=== PATIENT | female | born 2000 | race Two or more races ===

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

== ENCOUNTER 2018-01-14 21:40 | Emergency (ER) | payer MEDICAID ==
[2018-01-14] MEDS ORDERED: LEVETIRACETAM 1000 MG/NACL-ISO 1,000 MG/100 ML RTUPB IV ONE (21:58)
--- NOTE | 2018-01-14 22:03 | ER Document Report ---
ED Seizure - General Stated Complaint: POSSIBLE SEIZURE Time Seen by Provider: 01/14/18 21:49 Mode of Arrival: Stretcher Information source: Parent COUNTRY TRAVELED TO/FROM: [facility] Patient complains to provider of: History of seizures Character of seizure: Complete loss/conscious, Generalized shaking Post-ictal symptoms: Confusion Injuries: None Notes: 17 y/o female with h/o seizure disorder brought to Ed by EMS for seizure lasting greater then 30 minutes, patient received 8mg Versed prior to arrival in ED, family member at bedside reports no recent illness or injury, no fever, no nausea and vomiting, denies non-compliance with medications, patient sedated and convulsing at time of initial examination - Related Data Allergies/Adverse Reactions: No Known Allergies Allergy (Unverified 10/26/17 23:45) Past Medical History - General Information source: Relative - Social History Smoking Status: Unknown if Ever Smoked Family History: Other - Not obtainable due to the patient's mental status Neurological Medical History: Reports: Hx Seizures Renal/ Medical History: Denies: Hx Peritoneal Dialysis Review of Systems - Review of Systems Constitutional: No symptoms reported EENT: No symptoms reported Cardiovascular: No symptoms reported Respiratory: No symptoms reported Gastrointestinal: No symptoms reported Genitourinary: No symptoms reported Female Genitourinary: No symptoms reported Musculoskeletal: No symptoms reported Skin: No symptoms reported Hematologic/Lymphatic: No symptoms reported Neurological/Psychological: Seizure -: Yes All other systems reviewed and negative Physical Exam - Vital signs Vitals: Temp Resp Pulse Ox 98 F 17 100 01/14/18 21:48 01/14/18 21:48 01/14/18 21:48 Interpretation: Normal - General General appearance: Other - convulsing - HEENT Head: Normocephalic, Atraumatic Eyes: Normal Conjunctiva: Normal Eyelashes: Normal Pupils: PERRL Pharynx: Normal Neck: Normal - Respiratory Respiratory status: No respiratory distress Chest status: Nontender Breath sounds: Normal Chest palpation: Normal - Cardiovascular Rhythm: Regular Heart sounds: Normal auscultation Murmur: No - Abdominal Inspection: Normal Distension: No distension Bowel sounds: Normal Tenderness: Nontender Organomegaly: No organomegaly - Back Back: Normal, Nontender - Extremities General upper extremity: Normal inspection, Nontender, Normal color, Normal ROM , Normal temperature General lower extremity: Normal inspection, Nontender, Normal color, Normal ROM , Normal temperature, Normal weight bearing. No: Keyla's sign - Neurological Motor strength normal: LUE, RUE, LLE, RLE - Skin Skin Temperature: Warm Skin Moisture: Dry Skin Color: Normal Course - Re-evaluation Re-evalutation: 01/14/18 22:50 patient exhibiting convulsive -like movements on evaluation, however, when I lift her arm over her head and let it drop it diverts from her face each time, I am still trying to determine what medication she currently taking, EEG performed in October at this facility shows no signs of seizure activity, concern for likely psuedoseizures 01/14/18 23:01 cousin reports patient on Zoloft at home, not any seizure medication, further confirms my suspicion of pseudoseizures, patient sedated from Versed she received in Ambulance ride here, will attempt to ambulate and discharge home with follow-up instructions - Vital Signs Vital signs: Temp Pulse Resp BP Pulse Ox 98 F 15 137/77 H 100 01/14/18 21:48 01/14/18 22:03 01/14/18 22:03 01/14/18 22:03 - Laboratory Result Diagrams: 01/14/18 22:00 01/14/18 22:00 Laboratory results interpreted by me: 01/14/18 01/14/18 22:00 22:00 Hgb 11.9 L RDW 15.3 H Potassium 3.5 L Glucose 120 H Total Bilirubin 0.1 L AST 39 H - EKG Interpretation by Md EKG shows normal: Sinus rhythm Rate: Tachycardia Discharge - Discharge Clinical Impression: Pseudoseizures Condition: Stable Disposition: HOME, SELF-CARE Instructions: Anxiety ([facility]), Depression ([facility]) Additional Instructions: Follow up with your primary care provider in 2-3 days. Return to the ER immediately if symptoms worsen or any additional concerns. Referrals: JEROME ALEMAN MD [Primary Care Provider] - Follow up as needed
[2018-01-14 22:21] LABS: ABSOLUTE EOSINOPHILS # (AUTO) 0.2 10^3/uL (0.0-0.6); ABSOLUTE LYMPHOCYTES (AUTO) 1.8 10^3/uL (0.5-4.7); ABSOLUTE MONOCYTES (AUTO) 0.6 10^3/uL (0.1-1.4); ABSOLUTE NEUT (AUTO) 4.9 10^3/uL (1.7-8.2); BASOPHILS % (AUTO) 0.3 % (0-2); EOSINOPHILS % (AUTO) 2.2 % (0-6); HEMATOCRIT 36.4 % (36.0-47.0); HEMOGLOBIN 11.9 g/dL (12.0-15.5); LYMPHOCYTES % (AUTO) 24.1 % (13-45); MEAN CORPUSCULAR HEMOGLOBIN 27.1 pg (27.0-33.4); MEAN CORPUSCULAR HGB CONC 32.7 g/dL (32.0-36.0); MEAN CORPUSCULAR VOLUME 83 fl (80-97); MONOCYTES % (AUTO) 8.1 % (3-13); PLATELET COUNT 240 10^3/uL (150-450); RED CELL DISTRIBUTION WIDTH 15.3 % (11.5-14.0); SEGMENTED NEUTROPHILS % (AUTO) 65.3 % (42-78); TOTAL CELLS COUNTED % (AUTO) 100 %; WHITE BLOOD COUNT 7.4 10^3/uL (4.0-10.5)
[2018-01-14 22:31] LABS: ALANINE AMINOTRANSFERASE 18 U/L (5-35); ALBUMIN 4.3 g/dL (3.7-5.6); ALKALINE PHOSPHATASE 103 U/L (50-135); ANION GAP 13 (5-19); ASPARTATE AMINO TRANSFERASE 39 U/L (5-30); BILIRUBIN,DIRECT 0.1 mg/dL (0.0-0.4); BILIRUBIN,TOTAL 0.1 mg/dL (0.2-1.3); BLOOD UREA NITROGEN 13 mg/dL (7-20); CALCIUM 9.4 mg/dL (8.4-10.2); CARBON DIOXIDE 25 mmol/L (22-30); CHLORIDE 105 mmol/L (98-107); GLUCOSE 120 mg/dL (75-110); POTASSIUM 3.5 mmol/L (3.6-5.0); SODIUM 142.7 mmol/L (137-145); TOTAL PROTEIN 7.1 g/dL (6.3-8.2)
[2018-01-14 22:33] LABS: ALCOHOL < 10 mg/dL (NONE DETECTED)
[2018-01-15 00:51] VITALS: BP 101/60
--- NOTE | 2018-01-15 06:07 | EKG REPORT ---
SEVERITY:- BORDERLINE ECG - SINUS TACHYCARDIA PROBABLE LEFT ATRIAL ABNORMALITY : Confirmed by: Too Torre MD 15-Jan-2018 06:07:13
== END 2018-01-15 02:58 | disposition home or self-care (01) ==
LOC: ER 21:40
DX: F44.5 Conversion disorder with seizures or convulsions (principal); Z79.899 Other long term (current) drug therapy
CPT/HCPCS: 36415; 80053; 80307; 83735; 84703; 85025; 93005; 93010; 96374; 99284; J1953

== ENCOUNTER 2018-01-15 14:19 | Emergency (ER) | payer MEDICAID ==
--- NOTE | 2018-01-15 14:57 | ER Document Report ---
ED General - General Chief Complaint: Probable Seizure Stated Complaint: POSSIBLE SEIZURE Time Seen by Provider: 01/15/18 14:26 Cannot obtain history due to: Uncooperative Notes: The patient is a 17-year-old female, past medical history depression, pseudoseizures, presents with shaking of her arms by EMS. Cousin is at bedside and said that she is frequently having these shaking episodes. Patient was seen in the ER yesterday for similar symptoms and diagnosed with pseudoseizures. She had a prior EEG, which was negative for any seizure activity. On arrival to the ER, the patient will begin shaking as I get closer and will stop after I tell her to stop. Pleasant said she had some chest pain yesterday. Patient laying with her eyes closed and will not answer questions. JAILENE used to help with translation from ruby. TRAVEL OUTSIDE OF THE [place] IN LAST 30 DAYS: No COUNTRY TRAVELED TO/FROM: [facility] - Related Data Allergies/Adverse Reactions: No Known Allergies Allergy (Unverified 10/26/17 23:45) Past Medical History - General Information source: Relative - [place], Emergency Med Personnel Cannot obtain history due to: Uncooperative - Social History Smoking Status: Unknown if Ever Smoked Family History: Other - Not obtainable due to the patient's mental status Neurological Medical History: Reports: Hx Seizures Renal/ Medical History: Denies: Hx Peritoneal Dialysis Review of Systems - Review of Systems -: Yes ROS unobtainable due to patient's medical condition Physical Exam - Vital signs Vitals: Pulse Ox 100 01/15/18 14:34 - Notes Notes: PHYSICAL EXAMINATION: GENERAL: No acute distress. HEAD: Atraumatic, normocephalic. EYES: Pupils equal round and reactive to light, extraocular movements intact, sclera anicteric, conjunctiva are normal. ENT: nares patent, oropharynx clear without exudates. Moist mucous membranes. NECK: Normal range of motion, supple without lymphadenopathy LUNGS: Breath sounds clear to auscultation bilaterally and equal. No wheezes rales or rhonchi. HEART: Regular rate and rhythm without murmurs ABDOMEN: Soft, nontender, normoactive bowel sounds. No guarding, no rebound. No masses appreciated. EXTREMITIES: Normal range of motion, no pitting or edema. No cyanosis. NEUROLOGICAL: Arm shaking that worsens when I examine her and will stop when I walk out of the room. Eyes tightly shut. SKIN: Warm, Dry, normal turgor, no rashes or lesions noted. Course - Re-evaluation Re-evalutation: With patient's negative EEG and abnormal movements that are not consistent with a generalized tonic-clonic seizure, suspect patient is having PNES again. Accu- Chek is normal and EKG does not show any ischemic changes. When patient was told she was discharged, she woke up and ambulate out the door. Provide her with follow-up at [facility] for further evaluation and treatment. - Vital Signs Vital signs: Temp Pulse Resp BP Pulse Ox 98.7 F 86 18 104/60 100 01/15/18 16:55 01/15/18 16:55 01/15/18 16:55 01/15/18 16:55 01/15/18 16:55 Discharge - Discharge Clinical Impression: Pseudoseizures Condition: Stable Disposition: HOME, SELF-CARE Additional Instructions: You are not having seizures. Follow-up with a primary care physician, psychologist and neurologist for further evaluation and treatment. Referrals: [facility] [Outside] - Follow up as needed
[2018-01-15 17:12] VITALS: BP 104/60
--- NOTE | 2018-01-15 21:07 | EKG REPORT ---
SEVERITY:- BORDERLINE ECG - SINUS RHYTHM PROBABLE LEFT ATRIAL ABNORMALITY : Confirmed by: Estrada Tirado 15-Jan-2018 21:07:14
== END 2018-01-15 17:05 | disposition home or self-care (01) ==
LOC: ER 14:19
DX: R25.9 Unspecified abnormal involuntary movements (principal)
CPT/HCPCS: 93005; 93010; 99284

== ENCOUNTER 2018-09-06 13:36 | Emergency (ER) | payer SELFPAY ==
[2018-09-06 13:41] VITALS: BP 126/68
--- NOTE | 2018-09-06 14:48 | ER Document Report ---
ED Respiratory Problem - General Chief Complaint: Shortness Of Breath Stated Complaint: SHORTNESS OF BREATH Time Seen by Provider: 09/06/18 14:29 Mode of Arrival: Ambulatory Information source: Patient Notes: Chief complaint: Shortness of breath History of complain:( obtained from----patient) 20 years old female who is 22 weeks with , presents today shortness of breath on and off with a history of asthma. Has not been taking any inhalers. No fever chills productive cough. No abdominal pain. Denies any dysuria or frequency. Denies any vaginal discharges. History obtained through freelance interpreter/translator online Onset: As above Duration: Last few days Severity: Mild Quality: Wheezing Context: Unknown unknown Exacerbating factor and relieving factors: REVIEW OF SYSTEMS: CONSTITUTIONAL : Denies fever, chills, or sweats. Denies recent illness. EENT: Denies eye, ear, throat, or mouth pain or symptoms. Denies nasal or sinus congestion or discharge. Denies throat, tongue, or mouth swelling or difficulty swallowing. CARDIOVASCULAR: Denies chest pain. Denies palpitations or racing or irregular heart beat. Denies ankle edema. RESPIRATORY: Denies cough, cold, or chest congestion. Denies shortness of breath, difficulty breathing, or wheezing. GASTROINTESTINAL: Denies distention. Denies nausea, vomiting, or diarrhea. Denies blood in vomitus, stools, or per rectum. Denies black, tarry stools. Denies constipation. GENITOURINARY: Denies difficulty urinating, painful urination, burning, frequency, blood in urine, or discharge. FEMALE GENITOURINARY: Denies vaginal bleeding, heavy or abnormal periods, irregular periods. Denies vaginal discharge or odor. MUSCULOSKELETAL: Denies back or neck pain or stiffness. Denies joint pain or swelling. SKIN: Denies rash, lesions or sores. HEMATOLOGIC : Denies easy bruising or bleeding. LYMPHATIC: Denies swollen, enlarged glands. NEUROLOGICAL: Denies confusion or altered mental status. Denies passing out or loss of consciousness. Denies dizziness or lightheadedness. Denies headache. Denies weakness or paralysis or loss of use of either side. Denies problems with gait or speech. Denies sensory loss, numbness, or tingling. Denies seizures. PSYCHIATRIC: Denies anxiety or stress. Denies depression, suicidal ideation, or homicidal ideation. ALL OTHER SYSTEMS REVIEWED AND NEGATIVE. PHYSICAL EXAMINATION: GENERAL: Well-appearing, well-nourished and in no acute distress. HEAD: Atraumatic, normocephalic. EYES: Pupils equal round and reactive to light, extraocular movements intact, conjunctiva are normal. ENT: Nares patent, oropharynx clear without exudates. Moist mucous membranes. NECK: Normal range of motion, supple without lymphadenopathy LUNGS: Breath sounds clear to auscultation bilaterally and equal. No wheezes rales or rhonchi. HEART: Regular rate and rhythm without murmurs ABDOMEN: Soft, nontender, nondistended abdomen. No guarding, no rebound. No masses appreciated. Examination of genitals-deferred Musculoskeletal: Normal range of motion, no pitting or edema. No cyanosis. NEUROLOGICAL: Cranial nerves grossly intact. Normal speech, normal gait. Normal sensory, motor exams PSYCH: Normal mood, normal affect. SKIN: Warm, Dry, normal turgor, no rashes or lesions noted. Dictation was performed using [employer] voice recognition software TRAVEL OUTSIDE OF THE [place] IN LAST 30 DAYS: No COUNTRY TRAVELED TO/FROM: [facility] - [facility] Notes: Dictated - Related Data Allergies/Adverse Reactions: No Known Allergies Allergy (Verified 09/06/18 13:38) Past Medical History - Social History Smoking Status: Never Smoker Chew tobacco use (# tins/day): No Smoking Education Provided: No Frequency of alcohol use: Rare Lives with: Family Family History: Reviewed & Not Pertinent, Other - Not obtainable due to the patient's mental status Neurological Medical History: Reports: Hx Seizures Renal/ Medical History: Denies: Hx Peritoneal Dialysis Review of Systems - Review of Systems Notes: Dictated Physical Exam - Vital signs Vitals: Temp Pulse Resp BP Pulse Ox 98.5 F 82 12 126/68 H 100 09/06/18 13:39 09/06/18 13:39 09/06/18 13:39 09/06/18 13:39 09/06/18 13:39 - Notes Notes: Dictated Course - Vital Signs Vital signs: Temp Pulse Resp BP Pulse Ox 98.5 F 82 12 126/68 H 100 09/06/18 13:39 09/06/18 13:39 09/06/18 13:39 09/06/18 13:39 09/06/18 13:39 Discharge - Discharge Clinical Impression: Asthma Qualifiers: Asthma severity: mild Asthma persistence: intermittent Asthma complication type : unspecified Qualified Code(s): J45.20 - Mild intermittent asthma, uncomplicated Qualifiers: Weeks of gestation: 22 weeks Qualified Code(s): Z3A.22 - 22 weeks gestation of Condition: Fair Disposition: HOME, SELF-CARE Instructions: Asthma ([facility]) Prescriptions: Albuterol Sulfate [Proair HFA Inhalation Aerosol 8.5 gm MDI] 2 puff IH Q4H PRN # 1 mdi PRN Reason: Referrals: ZAIRA BEEBE, WELFARE CASE WORKER [Primary Care Provider] - Follow up as needed
== END 2018-09-06 14:52 | disposition home or self-care (01) ==
LOC: ER 13:36
DX: O26.92 Pregnancy related conditions, unspecified, second trimester (principal); J45.20 Mild intermittent asthma, uncomplicated; Z3A.22 22 weeks gestation of pregnancy
CPT/HCPCS: 99284

== ENCOUNTER → 2018-09-11 | Outpatient (CLI) | payer SELFPAY ==
--- NOTE | 2018-09-11 15:13 | RADIOLOGY REPORT (SQ) ---
EXAM DESCRIPTION: U/S OB 14+ TRNABD 1GES W/O DOP COMPLETED DATE/TIME: 09/11/2018 1:59 pm REASON FOR STUDY: Z34.82 ENCOUNTER FOR SUPERVISION OF OTHER NORMAL ,SECOND TRIMESTER Z34.82 ENCOUNTER FOR SUPRVSN OF NORMAL , SECOND TRI COMPARISON: None. TECHNIQUE: Static and Dynamic grayscale imaging performed of gravid uterus using transabdominal appr oach. Additional selected color Doppler and spectral images recorded. All stored on PACS. LIMITATIONS: None. FINDINGS: FETUSES SEEN:1 EGA: 24 weeks 5 days. Calculated using BPD,FL,HC,AC documented on images. No discrepancy with clinic al dates. BRANDIN: 12/27/2018. EFW: 728 grams +/-108 grams PERCENTILE: Not obtained. MAR: 3.5 cm PLACENTA: Anterior: Marginal previa. PRESENTATION: Transverse ANATOMY: HEART RATE: 133 beats per minute. FOUR CHAMBER HEART: Visualized. THREE VESSEL CORD: Yes. CORD INSERTION: Visualized. KIDNEYS AND BLADDER: Visualized. Appear normal. STOMACH: Visualized. Appears normal. SPINE: Normal as visualized. BRAIN AND LATERAL VENTRICLES: Visualized. Appear normal. OTHER: No other significant finding. MATERNAL ADNEXA: Maternal ovaries not visualized. CERVICAL LENGTH: 4.9 cm. Closed. OTHER: No other significant finding. IMPRESSION: LIVING INTRAUTERINE . ESTIMATED GESTATIONAL AGE 24 weeks 5 days NO VISUALIZED ANOMALIES. Trimester of : Second trimester - 13 weeks 1 day to 27 weeks 6 days. TECHNICAL DOCUMENTATION: JOB ID: [id number] [employer]- All Rights Reserved Reading location - IP/workstation name: [email or web address]
== END ==
LOC: RAD 13:57
PROVIDERS: ATTEND Nurse Practitioner
DX: Z34.82 Encounter for supervision of other normal pregnancy, second trimester (principal)
CPT/HCPCS: 76805

== ENCOUNTER → 2018-11-05 | Outpatient (CLI) | payer SELFPAY ==
[2018-11-05 16:05] LABS: URINE PROTEIN 14.1 mg/dL (<12)
[2018-11-05 16:06] LABS: 24 HOUR URINE PROTEIN RESULT 155 mg/day (42-225)
[2018-11-05 16:06] LABS: ALANINE AMINOTRANSFERASE 16 U/L (9-52); ALBUMIN 3.8 g/dL (3.5-5.0); ALKALINE PHOSPHATASE 139 U/L (38-126); ANION GAP 10 (5-19); ASPARTATE AMINO TRANSFERASE 25 U/L (14-36); BILIRUBIN,DIRECT 0.1 mg/dL (0.0-0.4); BILIRUBIN,TOTAL 0.4 mg/dL (0.2-1.3); BLOOD UREA NITROGEN 6 mg/dL (7-20); CARBON DIOXIDE 22 mmol/L (22-30); CHLORIDE 106 mmol/L (98-107); GLUCOSE 94 mg/dL (75-110); POTASSIUM 4.3 mmol/L (3.6-5.0); SODIUM 137.6 mmol/L (137-145); URIC ACID 2.9 mg/dL (2.5-6.2)
== END ==
LOC: LAB 15:37
PROVIDERS: ATTEND Nurse Practitioner
DX: O16.9 Unspecified maternal hypertension, unspecified trimester (principal)
CPT/HCPCS: 36415; 80053; 83615; 84156; 84550

== ENCOUNTER 2018-12-19 16:56 | Inpatient (IN) | payer SELFPAY ==
[2018-12-19 17:39] LABS: HEMATOCRIT 32.4 % (36.0-47.0); HEMOGLOBIN 10.7 g/dL (12.0-15.5); MEAN CORPUSCULAR HEMOGLOBIN 24.8 pg (27.0-33.4); MEAN CORPUSCULAR HGB CONC 32.9 g/dL (32.0-36.0); MEAN CORPUSCULAR VOLUME 75 fl (80-97); PLATELET COUNT 121 10^3/uL (150-450); RED BLOOD COUNT 4.31 10^6/uL (3.72-5.28); RED CELL DISTRIBUTION WIDTH 16.9 % (11.5-14.0); WHITE BLOOD COUNT 9.7 10^3/uL (4.0-10.5)
[2018-12-19 17:45] LABS: APPEARANCE,URINE CLOUDY; BILIRUBIN,URINE NEGATIVE (NEGATIVE); GLUCOSE, URINE NEGATIVE (NEGATIVE); KETONES,URINE NEGATIVE (NEGATIVE); LEUKOCYTE ESTERASE,URINE SMALL (NEGATIVE); NITRITE,URINE NEGATIVE (NEGATIVE); PROTEIN,URINE 100 mg/dL (NEGATIVE); URINE SPECIFIC GRAVITY 1.012; UROBILINOGEN,URINE NEGATIVE mg/dL (<2.0)
[2018-12-19 17:46] LABS: COLOR,URINE YELLOW
[2018-12-19 18:01] LABS: URINE AMPHETAMINES SCREEN NEGATIVE; URINE BARBITURATES SCREEN NEGATIVE; URINE BENZODIAZEPINES SCREEN NEGATIVE; URINE COCAINE SCREEN NEGATIVE; URINE MARIJUANA (THC) SCREEN NEGATIVE; URINE METHADONE SCREEN NEGATIVE; URINE PHENCYCLIDINE SCREEN NEGATIVE
[2018-12-19 18:06] LABS: ALANINE AMINOTRANSFERASE 14 U/L (9-52); ALBUMIN 3.6 g/dL (3.5-5.0); ALKALINE PHOSPHATASE 216 U/L (38-126); ANION GAP 10 (5-19); ASPARTATE AMINO TRANSFERASE 29 U/L (14-36); BILIRUBIN,DIRECT 0.2 mg/dL (0.0-0.4); BILIRUBIN,TOTAL 0.4 mg/dL (0.2-1.3); BLOOD UREA NITROGEN 7 mg/dL (7-20); CALCIUM 9.5 mg/dL (8.4-10.2); CARBON DIOXIDE 19 mmol/L (22-30); CHLORIDE 106 mmol/L (98-107); GLUCOSE 77 mg/dL (75-110); POTASSIUM 4.2 mmol/L (3.6-5.0); SODIUM 135.3 mmol/L (137-145); TOTAL PROTEIN 7.2 g/dL (6.3-8.2); URIC ACID 5.3 mg/dL (2.5-6.2)
[2018-12-19 18:14] LABS: URINE CREATININE 97.9 mg/dL (16-327)
[2018-12-19 18:36] LABS: UR PRO/CREAT RATIO RESULT 4.9 mg/mg (0.0-0.2); URINE PROTEIN 478.9 mg/dL (<12)
[2018-12-19] MEDS ORDERED: MAGNESIUM SULFATE 4 GM/100 ML RTUPB IV ONE ×2 (18:58→19:35)
[2018-12-19] MEDS ORDERED: RINGERS SOLUTION,LACTATED 1,000 ML IV ONE (19:04)
[2018-12-19] MEDS ORDERED: MISOPROSTOL 0.2 MG TABLET ONE (19:35)
[2018-12-19] MEDS ORDERED: LIDOCAINE 1% INJ-PF (10 MG/ML) 30 ML SDV ONE (19:35)
[2018-12-19] MEDS ORDERED: OXYTOCIN/NORMAL SALINE 20 UNIT/1,000 ML RTUINJ ONE (19:35)
[2018-12-19] MEDS ORDERED: MAGNESIUM SULFATE 20 GM/500 ML RTUINJ IV ONE (19:35)
[2018-12-19 19:54] LABS: ABSOLUTE LYMPHOCYTES (AUTO) 1.6 10^3/uL (0.5-4.7); ABSOLUTE MONOCYTES (AUTO) 0.6 10^3/uL (0.1-1.4); ABSOLUTE NEUT (AUTO) 6.8 10^3/uL (1.7-8.2); BASOPHILS % (AUTO) 0.3 % (0-2); EOSINOPHILS % (AUTO) 0.4 % (0-6); HEMATOCRIT 31.1 % (36.0-47.0); HEMOGLOBIN 10.1 g/dL (12.0-15.5); LYMPHOCYTES % (AUTO) 17.8 % (13-45); MEAN CORPUSCULAR HEMOGLOBIN 24.6 pg (27.0-33.4); MEAN CORPUSCULAR HGB CONC 32.6 g/dL (32.0-36.0); MEAN CORPUSCULAR VOLUME 76 fl (80-97); MONOCYTES % (AUTO) 6.8 % (3-13); PLATELET COUNT 120 10^3/uL (150-450); RED BLOOD COUNT 4.11 10^6/uL (3.72-5.28); RED CELL DISTRIBUTION WIDTH 16.9 % (11.5-14.0); SEGMENTED NEUTROPHILS % (AUTO) 74.7 % (42-78); TOTAL CELLS COUNTED % (AUTO) 100 %
[2018-12-19] MEDS ORDERED: OXYTOCIN/NORMAL SALINE 20 UNIT/1,000 ML RTUINJ IV PRN (20:11)
[2018-12-19] MEDS: MAGNESIUM SULFATE 20 GM/500 ML RTUINJ IV PRN (20:17)
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
[2018-12-20] MEDS ORDERED: NALBUPHINE HCL INJ 10 MG/1 ML AMPULE INJ ONE (00:43)
[2018-12-20] MEDS ORDERED: PROMETHAZINE HCL INJ 25 MG/1 ML VIAL IV ONE (00:43)
[2018-12-20] MEDS ORDERED: NALBUPHINE HCL INJ 10 MG/1 ML AMPULE ONE (00:45)
[2018-12-20] MEDS ORDERED: PROMETHAZINE HCL INJ 25 MG/1 ML VIAL ONE (00:45)
[2018-12-20] MEDS ORDERED: MEASLES,MUMPS&RUBELLA VACC/PF 0.5 ML VIAL SUBCUT PRN (02:30)
[2018-12-20] MEDS ORDERED: OXYTOCIN/NORMAL SALINE 20 UNIT/1,000 ML RTUINJ IV PRN (02:30)
[2018-12-20] MEDS ORDERED: NA PHOS,M-B/NA PHOS,DI-BA (ADULT) 133 ML ENEMA PR PRN (02:30)
[2018-12-20] MEDS ORDERED: DIBUCAINE 1% OINTMENT 56 GM TP PRN (02:30)
[2018-12-20] MEDS ORDERED: DIPHENHYDRAMINE HCL 25 MG CAPSULE PO PRN (02:30)
[2018-12-20] MEDS ORDERED: PROMETHAZINE HCL 25 MG SUPP.RECT PR PRN (02:30)
[2018-12-20] MEDS ORDERED: PROMETHAZINE HCL 25 MG TABLET PO PRN (02:30)
[2018-12-20] MEDS ORDERED: DIPH/PERTUSS(ACELL)/TETANUS VAC/PF 0.5 ML SYR (>=10YO) IM PRN (02:30)
[2018-12-20] MEDS ORDERED: ACETAMINOPHEN WITH CODEINE #3 TABLET PO PRN ×2 (02:30)
[2018-12-20] MEDS ORDERED: ACETAMINOPHEN 650 MG SUPP.RECT PR PRN (02:30)
[2018-12-20] MEDS ORDERED: GLYCERIN/WITCH HAZEL LEAF 1 EACH MED..PAD TP PRN (02:30)
[2018-12-20] MEDS ORDERED: PROMETHAZINE HCL INJ 25 MG/1 ML VIAL IV PRN (02:30)
[2018-12-20] MEDS ORDERED: MAGNESIUM HYDROXIDE SUSP 30 ML UDCUP PO PRN (02:30)
[2018-12-20] MEDS ORDERED: PSEUDOEPHEDRINE HCL 30 MG TABLET PO PRN (02:30)
[2018-12-20] MEDS ORDERED: BENZOCAINE/MENTHOL AEROSOL SPRAY 56 ML TOP PRN (02:30)
[2018-12-20] MEDS ORDERED: ZOLPIDEM TARTRATE 5 MG TABLET PO PRN (02:30)
[2018-12-20] MEDS ORDERED: ONDANSETRON HCL INJ/PF 4 MG/2 ML SDV ONE (03:57)
[2018-12-20] MEDS ORDERED: ONDANSETRON HCL INJ/PF 4 MG/2 ML SDV IV ONE (03:57)
[2018-12-20] MEDS: RINGERS SOLUTION,LACTATED 1,000 ML IV PRN ×2 (04:02→16:18)
--- NOTE | 2018-12-20 04:21 | Delivery Summary ---
Del Sum A-C Datetime Report Generated by CPN: 12/20/2018 04:21 DELIVERY PERSONNEL DELIVERY PERSONNEL: [id number] Delivery Doctor:: Lacey Rucker MD Labor and Delivery Nurse:: Danyelle Humphrey RNclinical resource director Nurse:: Bee Peoples RN Nursery Nurse:: Juanis Flanagan RN MSN MATERNAL INFORMATION Delivery Anesthesia: None Medications After Delivery: Pitocin Drip 20 Units/1000ml NSS Estimated Blood Loss (ml): 250 Maternal Complications: Precipitous Labor (<3hrs) LABOR SUMMARY EDC: 01/08/2019 00:00 No. Babies in Womb: 1 Attempted: No Labor Anesthesia: IV Sedation LABOR INFORMATION Reason for Induction: Pre-Eclampsia Onset of Labor: 12/20/2018 00:39 Complete Dilatation: 12/20/2018 02:09 Oxytocin: Induction Group B Beta Strep: negative Antibiotics # of Doses: 0 Antibiotics Time of Last Dose: N/A Name of Antibiotic Given: N/A Steroids Given: None Reason Steroids Not Administered: Not Applicable MEMBRANES Membranes Rupture Method: Spontaneous Rupture of Membranes: 12/20/2018 01:33 Length of Rupture (hr): 0.65 Amniotic Fluid Color: Clear Amniotic Fluid Amount: Moderate Amniotic Fluid Odor: Normal STAGES OF LABOR Stage 1 hr: 1 Stage 1 min: 30 Stage 2 hr: 0 Stage 2 min: 3 Stage 3 hr: 0 Stage 3 min: 2 Total Time in Labor hr: 1 Total Time in Labor min: 35 VAGINAL DELIVERY Episiotomy: None Laceration #1: None Laceration Extension #1: N/A Laceration #2: None Laceration Extension #2: N/A Laceration #3: None Laceration Extension #3: N/A Laceration Repair: Not Applicable Sponge Count Correct: Vaginal Sweep Performed Sharps Count Correct: Yes CSECTION DELIVERY Primary Indication: N/A Secondary Indication: N/A CSection Incidence: N/A Labor: N/A Elective: N/A CSection Incision: N/A BABY A INFORMATION Infant Delivery Date/Time: 12/20/2018 02:12 Method of Delivery: Vaginal Born in Route : No : N/A Forceps: N/A Vacuum Extraction: N/A Shoulder Dystocia : No PRESENTATION/POSITION BABY A Presentation: Cephalic Cephalic Presentation: Vertex Vertex Position: Left Occipital Anterior Breech Presentation: N/A PLACENTA INFORMATION BABY A Placenta Delivery Time : 12/20/2018 02:14 Placenta Method of Delivery: Spontaneous Placenta Status: Delivered SCORES BABY A Heart Rate 1 min: >100 bpm Resp Effort 1 min: Good Cry Reflex Irritability 1 min: Cough or Sneeze or Pulls Away Muscle Tone 1 min: Active Motion Color 1 min: Blue/Pale SCORE 1 MIN: 8 Heart Rate 5 min: >100 bpm Resp Effort 5 min: Good Cry Reflex Irritability 5 min: Cough or Sneeze or Pulls Away Muscle Tone 5 min: Active Motion Color 5 min: Body [place], Extremities Blue SCORE 5 MIN: 9 INFANT INFORMATION BABY A Gestational Age at Delivery: 37.2 Gestational Status: Early Term- 37- 38.6 Weeks Outcome : Liveborn Infant Condition : Stable Sex: Male IDENTIFICATION BABY A Infant Verification Date/Time: 12/20/2018 02:41 ID Band Number: [id number] Mother's Name Verified: Yes RN Verifying Infant: Gabriella Humphrey RN, CMani Donnacristian RN WEIGHT/LENGTH BABY A Infant Birthweight (gm): 3585 Infant Weight (lb): 7 Infant Weight (oz): 14 Length (in): 20.75 Length (cm): 52.71 CORD INFORMATION BABY A No. Cord Vessels: 3 Nuchal Cord : Around Neck x2, Loose Cord Blood Taken: Yes-For Storage (Mom's Blood type +) Infant Suction: Mouth; Nose ASSESSMENT BABY A Infant Complications: None Physical Findings at Delivery: Within Normal Limits Skin to Skin: No Transferred To: Remains with Mother BABY B INFORMATION : N/A SIGNATURES Signature: with User ID: [email or web address]
[2018-12-20] MEDS ORDERED: MAGNESIUM SULFATE 20 GM/500 ML RTUINJ IV ONE ×2 (05:59→16:14)
[2018-12-20] MEDS ORDERED: IBUPROFEN 800 MG TABLET ONE ×2 (05:59→20:26)
[2018-12-20] MEDS: IBUPROFEN 800 MG TABLET PO SCH ×2 (06:44→20:28)
[2018-12-20] MEDS: MAGNESIUM SULFATE 20 GM/500 ML RTUINJ IV PRN ×2 (06:44→16:17)
[2018-12-20] MEDS ORDERED: ACETAMINOPHEN WITH CODEINE #3 TABLET ONE (12:38)
[2018-12-20] MEDS ORDERED: FAMOTIDINE 20 MG TABLET ONE (12:41)
[2018-12-20] MEDS ORDERED: SENNOSIDES/DOCUSATE 8.6-50 MG 1 EACH TABLET ONE (12:41)
[2018-12-20] MEDS ORDERED: PRENATAL VITAMIN W DHA CAPSULE PO ONE (12:41)
[2018-12-20] MEDS ORDERED: DOCUSATE SODIUM 100 MG CAPSULE ONE ×2 (12:41→18:58)
[2018-12-20] MEDS ORDERED: FERROUS SULFATE 325 MG TABLET PO ONE ×2 (12:42→18:59)
[2018-12-20] MEDS: FAMOTIDINE 20 MG TABLET PO SCH (12:44)
[2018-12-20] MEDS: FERROUS SULFATE 325 MG TABLET PO SCH ×2 (12:45→19:01)
[2018-12-20] MEDS: PRENATAL VITAMIN W DHA CAPSULE PO SCH (12:45)
[2018-12-20] MEDS: SENNOSIDES/DOCUSATE 8.6-50 MG 1 EACH TABLET PO SCH (12:45)
[2018-12-20] MEDS: DOCUSATE SODIUM 100 MG CAPSULE PO SCH ×2 (12:45→19:00)
[2018-12-21] MEDS: IBUPROFEN 800 MG TABLET PO SCH ×4 (05:10→21:45)
[2018-12-21] MEDS: FAMOTIDINE 20 MG TABLET PO SCH ×3 (05:10→21:45)
[2018-12-21 07:09] LABS: HEMATOCRIT 25.3 % (36.0-47.0); HEMOGLOBIN 8.3 g/dL (12.0-15.5); MEAN CORPUSCULAR HEMOGLOBIN 24.9 pg (27.0-33.4); MEAN CORPUSCULAR HGB CONC 32.9 g/dL (32.0-36.0); MEAN CORPUSCULAR VOLUME 76 fl (80-97); PLATELET COUNT 132 10^3/uL (150-450); RED BLOOD COUNT 3.34 10^6/uL (3.72-5.28); RED CELL DISTRIBUTION WIDTH 17.5 % (11.5-14.0); WHITE BLOOD COUNT 8.5 10^3/uL (4.0-10.5)
[2018-12-21] MEDS: SENNOSIDES/DOCUSATE 8.6-50 MG 1 EACH TABLET PO SCH (09:29)
[2018-12-21] MEDS: PRENATAL VITAMIN W DHA CAPSULE PO SCH (09:29)
[2018-12-21] MEDS: DOCUSATE SODIUM 100 MG CAPSULE PO SCH ×2 (09:29→17:32)
[2018-12-21] MEDS: FERROUS SULFATE 325 MG TABLET PO SCH ×2 (09:29→17:32)
--- NOTE | 2018-12-21 15:19 | PDOC PROGRESS REPORT ---
Subjective-OB Progress Note for:: 12/21/18 Subjective: Pt doing well, no concerns. Selina used for communication. She reports light bleeding, reg diet and voiding without difficulty. Physical Exam (OB) Vital Signs: Temp Pulse Resp BP Pulse Ox 98.0 F 72 15 143/88 H 98 12/21/18 12:01 12/21/18 12:01 12/21/18 12:01 12/21/18 12:01 12/21/18 12:01 Intake & Output 12/20/18 12/21/18 12/22/18 06:59 06:59 06:59 Intake Total 500 1398 1500 Balance 500 1398 1500 Weight 96.3 kg - Lochia Lochia Amount: Scant < 10 ml Lochia Color: Rubra/Red - Abdomen Description: Soft Hernia Present: No Fundal Description: Firm, Midline Fundal Height: u/u - u/2 Objective-Diagnostic Laboratory: 12/21/18 06:46 12/19/18 17:10 12/21/18 06:46 WBC 8.5 RBC 3.34 L Hgb 8.3 L Hct 25.3 L MCV 76 L MCH 24.9 L MCHC 32.9 RDW 17.5 H Plt Count 132 L Assessment and Plan(PN) - Assessment and Plan (1) (normal spontaneous vaginal delivery) Is this a current diagnosis for this admission?: Yes - Time Spent with Patient Time with patient: Less than 15 minutes Medications reviewed and adjusted accordingly: Yes - Disposition Anticipated Discharge: Home Within: within 24 hours
[2018-12-22] MEDS: IBUPROFEN 800 MG TABLET PO SCH ×2 (05:33→15:03)
--- NOTE | 2018-12-22 09:13 | PDOC DISCHARGE SUMMARY ---
Final Diagnosis Discharge Date: 12/22/18 - Final Diagnosis (1) (normal spontaneous vaginal delivery) Is this a current diagnosis for this admission?: Yes (2) Pre-eclampsia Is this a current diagnosis for this admission?: Yes Discharge Data - Discharge Medication Home Medications: Albuterol Sulfate [Proair HFA Inhalation Aerosol 8.5 gm MDI] 2 puff IH Q4H PRN #1 mdi 09/06/18 Reason(s) for Admission: Induction of Labor Procedures: NST Intrapartum Procedure(s): Spontaneous Vaginal Delivery - Diagnosis Test Laboratory: Temp Pulse Resp BP Pulse Ox 98.2 F 83 18 138/83 H 98 12/21/18 23:39 12/21/18 23:39 12/21/18 23:39 12/21/18 23:39 12/21/18 23:39 12/19/18 12/19/18 12/19/18 17:04 17:10 19:37 RBC 4.31 4.11 Hgb 10.7 L 10.1 L Hct 32.4 L 31.1 L Urine Opiates Screen NEGATIVE 12/21/18 06:46 RBC 3.34 L Hgb 8.3 L Hct 25.3 L Urine Opiates Screen - Discharge information/Instructions Discharge Activity: Balance Activity w/Rest, Pelvic Rest Discharge Diet: Regular Disposition: HOME, SELF-CARE Follow up with: [facility] [place] in: 1, 4, Weeks
[2018-12-22] MEDS: DOCUSATE SODIUM 100 MG CAPSULE PO SCH (10:29)
[2018-12-22] MEDS: FERROUS SULFATE 325 MG TABLET PO SCH (10:29)
[2018-12-22] MEDS: FAMOTIDINE 20 MG TABLET PO SCH (10:30)
[2018-12-22] MEDS: SENNOSIDES/DOCUSATE 8.6-50 MG 1 EACH TABLET PO SCH (10:30)
[2018-12-22] MEDS: PRENATAL VITAMIN W DHA CAPSULE PO SCH (10:30)
[2018-12-22 15:25] VITALS: BP 138/83
== END 2018-12-22 16:39 | disposition home or self-care (01) | DRG 807 ==
LOC: LC 16:56 → LR 18:56 → 2S 12-21 03:24
PROVIDERS: ADMIT Obstetrics & Gynecology; ATTEND Obstetrics & Gynecology
PROC: 10E0XZZ Delivery of Products of Conception, External Approach (ICD-10-PCS; principal; 2018-12-20)
DX: O14.94 Unspecified pre-eclampsia, complicating childbirth (principal); Z37.0 Single live birth; O69.81X0 Labor and delivery complicated by cord around neck, without compression, not applicable or unspecified; O62.3 Precipitate labor; Z3A.37 37 weeks gestation of pregnancy
CPT/HCPCS: 36415; 59025; 80053; 80307; 81001; 82570; 83615; 84156; 84550; 85025; 85027; 86592; 86850; 86900; 86901; J2300; J2405; J2550; J2590; J3475; J3490